=== PATIENT | male | born 1960 ===

== ENCOUNTER 2022-01-29 15:08 | Emergency (ER) | payer MEDICAID ==
[~2022-01-29] VITALS: Ht 172.7 cm; Wt 83.0 kg
[2022-01-29 15:38] VITALS: BP 138/85
--- NOTE | 2022-01-29 16:13 | NUR ---
PUBLICITY CONSULTANT ID [id number] MARIA DEL ROSARIO
[2022-01-29] MEDS ORDERED: bacitracin 15gm ointment TP ONE (17:10)
== END 2022-01-29 17:18 | disposition home or self-care (01) ==
LOC: ER 15:10
DX: L98.9 Disorder of the skin and subcutaneous tissue, unspecified (principal); R31.9 Hematuria, unspecified
CPT/HCPCS: 99282; A6449